=== PATIENT | female | born 1990 | race Caucasian/White ===

== ENCOUNTER 2025-07-19 10:00 | Emergency (ER) | payer MEDICAID ==
[~2025-07-19] VITALS: Ht 165.1 cm; Wt 97.0 kg
[2025-07-19 10:19] VITALS: O2SAT 100
[2025-07-19] MEDS: ACETAMINOPHEN 500MG TABLET PO ONE (11:00)
[2025-07-19 11:09] LABS: BASOPHILS % 0.4 % (0.0-2.0); EOSINOPHILS % 0.7 % (0.0-5.0); HEMATOCRIT. 41.4 % (36.0-48.0); HEMOGLOBIN. 13.8 g/dL (12.0-16.0); LYMPHOCYTES % 25.0 % (20.0-50.0); MEAN PLATELET VOLUME 9.9 fl (7.4-10.4); MONOCYTES % 6.0 % (2.0-8.0); NEUTROPHILS % 67.9 % (40.0-76.0); PLATELET 189 x1000/uL (130-400); RED BLOOD CELL COUNT 4.61 mill/uL (4.2-5.4); RED CELL DISTRIBUTION WIDTH 13.1 % (11.6-14.6)
[2025-07-19 11:25] LABS: CREATININE 0.5 mg/dL (0.6-1.0); UREA NITROGEN BLOOD 6 mg/dL (9-23)
[2025-07-19] MEDS ORDERED: TOPUD PO (12:58)
[2025-07-19 13:05] LABS: CLARITY URINE CLEAR (CLEAR); COLOR URINE YELLOW (YELLOW); GLUCOSE URINE NEGATIVE (NEGATIVE); KETONES URINE NEGATIVE (NEGATIVE); LEUKOCYTE ESTERASE URINE NEGATIVE (NEGATIVE); NITRITE URINE NEGATIVE (NEGATIVE); OCCULT BLOOD URINE NEGATIVE (NEGATIVE); PH URINE 6.0 (4.5-8.0); PROTEIN URINE NEGATIVE (NEGATIVE); SPECIFIC GRAVITY URINE 1.012 (1.005-1.030); UROBILINOGEN URINE 0.2 E.U./dL (0.2-1.0)
[2025-07-19 13:22] VITALS: BP 130/79; PULSE 78; RESP 16; TEMP 36.8; O2SAT 100
== END 2025-07-19 13:23 | disposition home or self-care (01) ==
LOC: ER 10:00
DX: O03.9 Complete or unspecified spontaneous abortion without complication (principal); R10.24 Suprapubic pain; Z3A.01 Less than 8 weeks gestation of pregnancy
CPT/HCPCS: 36415; 76801; 80048; 81003; 81025; 84702; 85025; 99284